=== PATIENT | male | born 1970 | race Caucasian/White ===

== ENCOUNTER 2021-09-05 09:45 | Emergency (ER) | payer OTHER ==
[~2021-09-05] VITALS: Ht 165.1 cm; Wt 81.8 kg
[2021-09-05 09:50] VITALS: BP 197/110
[2021-09-05] MEDS ORDERED: LIDOcaine 1% W/epiNEPHrine 1:200,000 10ml vial IJ ONE (09:55)
[2021-09-05] MEDS ORDERED: LIDOcaine 1% W/epiNEPHrine 1:100,000 20ml vial IJ ONE (10:00)
[2021-09-05] MEDS ORDERED: CEPH500C81 PO (11:02)
[2021-09-05] MEDS ORDERED: SULF1TAB49 PO (11:02)
== END 2021-09-05 11:04 | disposition home or self-care (01) ==
LOC: ER 09:47
DX: L02.413 Cutaneous abscess of right upper limb (principal); I10 Essential (primary) hypertension; F19.10 Other psychoactive substance abuse, uncomplicated; Z79.2 Long term (current) use of antibiotics
CPT/HCPCS: 87070; 99283